=== PATIENT | male | born 1965 | race Caucasian/White ===

== ENCOUNTER 2017-09-07 05:25 | Day surgery (SDC) | payer OTHER ==
[2017-09-03 14:11] VITALS: BMI 36.8
[2017-09-07] MEDS ORDERED: BUPIVACAINE HCL/PF 0.5% (5MG/ML) 10 ML VIAL ONE (07:22)
[2017-09-07] MEDS ORDERED: LIDOCAINE 1%/EPI 1:100000 (20 ML MULTI DOSE VIAL) ONE ×2 (07:22→07:44)
[2017-09-07] MEDS ORDERED: PROPOFOL 20 ML ONE ×3 (07:49)
[2017-09-07] MEDS ORDERED: SUCCINYLCHOLINE CHLORIDE 200 MG/10 ML VIAL ONE (07:49)
[2017-09-07] MEDS ORDERED: ePHEDrine SULFATE 50 MG/1 ML AMPULE ONE (07:49)
[2017-09-07] MEDS ORDERED: MIDAZOLAM HCL 2 MG/2 ML SINGLE DOSE VIAL ONE (07:50)
[2017-09-07] MEDS ORDERED: ceFAZolin SODIUM 1 GM VIAL ONE (07:51)
[2017-09-07] MEDS ORDERED: KETOROLAC TROMETHAMINE 30 MG/1 ML VIAL ONE (07:51)
[2017-09-07] MEDS ORDERED: LIDOCAINE HCL/PF 2% SDV 5ML VIAL ONE (07:51)
[2017-09-07] MEDS ORDERED: DEXAMETHASONE SOD PHOSPHATE 4 MG/1 ML VIAL ONE (07:51)
--- NOTE | 2017-09-07 07:53 | HP ---
Satellite [facility] - Chief Complaint Chief Complaint: right knee pain - Past Medical History Allergies/Adverse Reactions: Allergies Allergy/AdvReac Type Severity Reaction Status Date / Time No Known Allergies Allergy Verified 09/07/17 06:18 - Current Medications Current Medications: Home Medications Medication Instructions Recorded Cholecalciferol (Vitamin D3) 400 unit PO DAILY 09/03/17 [Vitamin D -] Garlic 1 each PO DAILY 09/03/17 Multivitamin [One Daily] 1 each PO DAILY 09/03/17 [place]-3 Fatty Acids/Fish Oil [Fish 1 each PO DAILY 09/03/17 Oil 1,000 mg Capsule] Oxycodone HCl/Acetaminophen 1 - 2 tab PO Q6H #30 tab MDD 8 09/07/17 [Percocet 5-325 mg Tablet -] Satellite Physical Exam - Physical Examination Vital Signs: Vital Signs Period Temp Pulse Resp BP Sys/[place] Pulse Ox Last 24 Hr 97.7 F 100 20 155/101 97 General Appearance: Well Nourished, Well Developed, Alert & Oriented x3 ENT: Clear Lung: Normal air movement Heart: Regular rate & rhythm Extremities: Other (right knee- + swelling, + ttp, decr rom, + mcmurrays, nvi MRi + mmt) Neurological: Intact, Alert, Oriented Satellite Impression/Plan - Impression/Plan Impression: right knee internal derangement Operative Procedure: right knee arthroscopy Date to be Performed: 09/07/17
[2017-09-07] MEDS ORDERED: ONDANSETRON 4 MG/2 ML VIAL IVPUSH PRN (08:12)
[2017-09-07] MEDS ORDERED: oxyCODONE HCL 5 MG TABLET PO PRN (08:12)
[2017-09-07] MEDS ORDERED: LACTATED RINGERS SOLUTION 1,000 ML IV SCH (08:15)
[2017-09-07] MEDS ORDERED: BUPIVACAINE HCL/PF (5 MG/ML) 30 ML VIAL IJ ONE (08:16)
[2017-09-07] MEDS ORDERED: LIDOCAINE 1%/EPI 1:100000 (20 ML MULTI DOSE VIAL) IJ ONE (08:16)
--- NOTE | 2017-09-07 08:56 | OP ---
Operative Note - Note: Operative Date: 09/07/17 ([facility]) Pre-Operative Diagnosis: right knee internal derangement Operation: right knee arthroscopy with PMM, debridement chondroplasty [facility] Post-Operative Diagnosis: Same as Pre-op Surgeon: Evens Ramey Anesthesia: General, Local Specimens Removed: shavings Estimated Blood Loss (mls): 5 Operative Report Dictated: Yes
--- NOTE | 2017-09-07 09:36 | OP ---
DATE OF OPERATION: 09/07/2017 PREOPERATIVE DIAGNOSIS: Internal derangement, right knee. POSTOPERATIVE DIAGNOSIS: Internal derangement, right knee. PROCEDURE: Arthroscopy, right knee, with partial medial meniscectomy and chondroplasty of medial femoral condyle. SURGICAL ATTENDING: Evens Ramey MD ANESTHESIA: General with LMA. CLOSURE: 4-0 nylon. COMPLICATIONS: None. CONDITION: To recovery in stable condition. DESCRIPTION OF OPERATIVE PROCEDURE: The patient taken to the operating room on September 07, 2017. General anesthesia with LMA was administered by the anesthesiologist. Right lower extremity was prepped and draped in the usual sterile fashion. The medial and lateral infrapatellar portal sites were infiltrated with 1% xylocaine with epinephrine. Both portals were then made with a 15-blade for blunt trocar. The scope trocar was placed in the inferolateral portal to the suprapatellar pouch. The pouch was then filled with a cocktail of 10 mL of 1% xylocaine, 10 mL of 0.5% Marcaine, and 20 mL of arthroscopic saline. After the anesthetic was allowed to sit in the knee for a few minutes, the procedure was performed. The scope was visualized and the pouch to be clean. The medial and lateral gutters were visualized to be clean. The undersurfaces of the patella and trochlea were visualized to be intact. With valgus stress on the knee, the medial compartment was entered, and medial meniscus was visualized and probed, found to have a complex tear of its posterior horn with a large flap tear posteriorly. This was debrided back to stable meniscal tissue with meniscal biter and arthroscopic shaver. The medial femoral condyle had some grade 3 changes. This was debrided using the shaver. The medial tibial plateau was found to be intact. In the figure-of-4 position, the lateral compartment was entered. The lateral meniscus was visualized and found to be intact. The lateral femoral condyle was found to be intact, as well as the lateral tibial plateau. At 90 degrees, the ACL was visualized and probed and found to be intact. The knee was irrigated with copious amounts of irrigation. The portal was closed with 4-0 nylon. Prior to closure, 20 mL of 0.5% Marcaine was infused into the knee through the scope trocar for postoperative analgesia. Sterile pressure dressing was placed over the knee. The patient awakened from anesthesia and transferred to recovery in stable condition with no complication. ESTIMATED BLOOD LOSS: Negligible. Bambi AGUSTIN/[id number]
[2017-09-07 10:28] VITALS: TEMP 98.2
[2017-09-07 11:30] VITALS: BP 142/100; PULSE 90
--- NOTE | 2017-09-12 13:24 | PATH ---
Surgical Pathology Report Patient Name: JANICE BANG Med. Rec. #: [id number] /Age/Gender: 1965 (Age: 51) / M Account: [id number] Location: [facility] Taken: 09/07/2017 Received: 09/07/2017 Reported: 09/12/2017 Physicians: Evens Ramey M.D. Specimen(s) Received RIGHT KNEE SHAVINGS Clinical History Right knee tear Final Diagnosis KNEE, RIGHT, ARTHROSCOPIC SHAVING: FIBROCARTILAGE WITH MYXOID DEGENERATIVE CHANGES, ALONG WITH PORTIONS OF SYNOVIUM AND HYALINE CARTILAGE. Electronically Signed Bijan Douglas M.D. Gross Description Received in formalin, labeled "right knee shavings," is a 4.3 x 2.4 x 0.4 cm. aggregate of wilde-yellow soft tissue fragments. A brewery representative portion is submitted in one cassette. DL/09/07/2017 saudi09/07/2017
== END 2017-09-07 11:30 | disposition home or self-care (01) ==
LOC: JASU-SURG 05:25
PROVIDERS: ATTEND Orthopaedic Surgery
PROC: 0SBC4ZZ Excision of Right Knee Joint, Percutaneous Endoscopic Approach (ICD-10-PCS; principal; 2017-09-07 08:00)
DX: S83.232A Complex tear of medial meniscus, current injury, left knee, initial encounter (principal); X58.XXXA Exposure to other specified factors, initial encounter; Y93.9 Activity, unspecified; Y92.9 Unspecified place or not applicable; Y99.9 Unspecified external cause status
CPT/HCPCS: 94760